=== PATIENT | female | born 1980 ===

== ENCOUNTER 2017-07-29 13:09 | Emergency (ER) | payer OTHER ==
[2017-07-29 13:32] VITALS: BP 108/65; RESP 18; TEMP 99.8
[2017-07-29 13:52] VITALS: PULSE 109; O2SAT 100
--- NOTE | 2017-07-29 13:55 | ED PDOC ---
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 Patient states everyone in household has same symptoms and were all tested for flu, but tested (-). Patient admits to taking Motrin 2 hours ago. Denies any chest pain, shortness of breath, recent travel or hemoptysis. 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 [place] Past Medical History Reviewed: Historical Data, Nursing Documentation, Vital Signs Vital Signs: Last Vital Signs Temp 99.8 F H 07/29/17 13:29 Pulse 109 H 07/29/17 13:51 Resp 18 07/29/17 13:29 BP 108/65 07/29/17 13:29 Pulse Ox 100 07/29/17 13:57 - Medical History PMH: No Chronic Diseases - Surgical History Surgical History: No Surg Hx - Family History Family History: States: Unknown Family Hx - Home Medications Home Medications: Ambulatory Orders Medication Instructions Recorded Nitrofurantoin Macrocrystals 100 mg PO BID #10 cap 05/03/14 [Macrobid] Acetaminophen [Tylenol] 2 tab PO Q4H PRN 12/20/14 Ibuprofen [Motrin] 600 mg PO Q8 #30 tab 12/20/14 Benzonatate [Tessalon Perle] 100 mg PO Q8 PRN #20 capsule 07/29/17 Fluticasone Propionate [Flonase] 2 spr NS DAILY PRN #1 bottle 07/29/17 - Allergies Allergies/Adverse Reactions: Allergies Allergy/AdvReac Type Severity Reaction Status Date / Time No Known Allergies Allergy Verified 12/20/14 16:05 Review of Systems ROS Statement: Except As Marked, All Systems Reviewed And Found Negative Constitutional: Positive for: Fever ENT: Positive for: Nose Congestion Cardiovascular: Negative for: Chest Pain Respiratory: Positive for: Cough. Negative for: Shortness of Breath, Hemoptysis Physical Exam - Reviewed Nursing Documentation Reviewed: Yes Vital Signs Reviewed: Yes - Physical Exam Appears: Positive for: Well Head Exam: Positive for: NORMAL INSPECTION Skin: Negative for: Rash Eye Exam: Positive for: Normal appearance ENT: Positive for: Normal ENT Inspection Cardiovascular/Chest: Positive for: Regular Rate, Rhythm Respiratory: Positive for: Normal Breath Sounds. Negative for: Respiratory Distress Neurologic/Psych: Positive for: Alert, Oriented. Negative for: Motor/Sensory Deficits - ECG O2 Sat by Pulse Oximetry: 100 (RA) Medical Decision Making Medical Decision Making: Upon provider evaluation patient is medically stable, and requires no further treatment in the ED at this time. Patient will be discharged with Rx for Tessalon Perle, Flonase. Counseling was provided and all questions were answered regarding diagnosis. Advised to continue Tylenol or Motrin as needed for fever. There is agreement to discharge plan. Return if symptoms persist or worsen. Scribe Attestation: Documented by Jimenez Norwood, acting as a scribe for VALARIE Gordon. Provider Scribe Attestation: All medical record entries made by the Scribe were at my direction and personally dictated by me. I have reviewed the chart and agree that the record accurately reflects my personal performance of the history, physical exam, medical decision making, and the department course for this patient. I have also personally directed, reviewed, and agree with the discharge instructions and disposition. Disposition - Clinical Impression Clinical Impression: Upper respiratory infection - Patient ED Disposition Is Patient to be Admitted: No - Disposition Referrals: [facility] [Outside] Disposition: Routine/Home Disposition Time: 13:49 Condition: STABLE Additional Instructions: Drink plenty of fluids. Continue taking Tylenol or Motrin as needed for fever. Follow up with [facility] for further evaluation. Prescriptions: Benzonatate [Tessalon Perle] 100 mg PO Q8 PRN #20 capsule PRN Reason: Cough Fluticasone Propionate [Flonase] 2 spr NS DAILY PRN #1 bottle PRN Reason: Allergy Symptoms Instructions: Upper Respiratory Infection (ED) Forms: [employer] Connect (British), [employer] Connect (Chinese) Print Language: IRISH
== END 2017-07-29 14:12 | disposition home or self-care (01) ==
LOC: H.ER 13:09
DX: J06.9 Acute upper respiratory infection, unspecified (principal)

== ENCOUNTER 2017-12-15 16:37 | Emergency (ER) | payer OTHER ==
[2017-12-15 16:45] VITALS: BP 111/53; PULSE 72; RESP 18; TEMP 98.1; O2SAT 99
--- NOTE | 2017-12-15 17:15 | ED PDOC ---
Lower Extremity Pain/Injury Time Seen by Provider: 12/15/17 16:46 Chief Complaint (Nursing): Lower Extremity Problem/Injury Chief Complaint (Provider): Dry cracked skin on heels History Per: Patient History/Exam Limitations: no limitations Onset/Duration Of Symptoms: Days (x3) Current Symptoms Are (Timing): Still Present Additional Complaint(s): 37 y/o female with no signficant pmhx, who presents ot the ED for evaluation of dry cracked skin to left heel x3 days. Patient is also complaining of pain to the base of the left big toe ongoing for 1 month. Past Medical History Reviewed: Historical Data, Nursing Documentation, Vital Signs Vital Signs: Last Vital Signs Temp 98.1 F 12/15/17 16:40 Pulse 72 12/15/17 16:40 Resp 18 12/15/17 16:40 BP 111/53 L 12/15/17 16:40 Pulse Ox 99 12/15/17 16:40 - Medical History PMH: No Chronic Diseases - Surgical History Surgical History: No Surg Hx - Family History Family History: States: Unknown Family Hx - Home Medications Home Medications: Ambulatory Orders Medication Instructions Recorded Nitrofurantoin Macrocrystals 100 mg PO BID #10 cap 05/03/14 [Macrobid] Acetaminophen [Tylenol] 2 tab PO Q4H PRN 12/20/14 Ibuprofen [Motrin] 600 mg PO Q8 #30 tab 12/20/14 Benzonatate [Tessalon Perle] 100 mg PO Q8 PRN #20 capsule 07/29/17 Fluticasone Propionate [Flonase] 2 spr NS DAILY PRN #1 bottle 07/29/17 - Allergies Allergies/Adverse Reactions: Allergies Allergy/AdvReac Type Severity Reaction Status Date / Time No Known Allergies Allergy Verified 12/15/17 16:40 Review of Systems ROS Statement: Except As Marked, All Systems Reviewed And Found Negative Skin: Positive for: Other (dry cracked skin on left heel) Physical Exam - Reviewed Nursing Documentation Reviewed: Yes Vital Signs Reviewed: Yes - Physical Exam Appears: Positive for: Non-toxic, No Acute Distress Head Exam: Positive for: ATRAUMATIC Skin: Positive for: Normal Color, Warm Eye Exam: Positive for: Normal appearance Neck: Positive for: Normal, Painless ROM Respiratory: Negative for: Respiratory Distress Extremity: Positive for: Other (bony protuberance to left 1st MTP) Neurologic/Psych: Positive for: Alert - ECG O2 Sat by Pulse Oximetry: 99 (RA) Pulse Ox Interpretation: Normal Medical Decision Making Medical Decision Making: Scribe Attestation: Documented by Quinton Devries, acting as a scribe for Mckenna Cline PA-C. MD Scribe Attestation: All medical record entries made by the Scribe were at my direction and personally dictated by me. I have reviewed the chart and agree that the record accurately reflects my personal performance of the history, physical exam, medical decision making, and the department course for this patient. I have also personally directed, reviewed, and agree with the discharge instructions and disposition. Disposition - Clinical Impression Clinical Impression: Cracked skin on feet, Bunion of great toe - Disposition Referrals: [facility] [Outside] Disposition: Routine/Home Disposition Time: 17:18 Condition: STABLE Instructions: Bunion Forms: [employer] (Setswana) Print Language: BRITISH [place]
== END 2017-12-15 17:29 | disposition home or self-care (01) ==
LOC: H.ER 16:37
DX: R23.4 Changes in skin texture (principal); M20.12 Hallux valgus (acquired), left foot

== ENCOUNTER 2018-11-13 23:54 | Emergency (ER) | payer SELFPAY ==
[2018-11-14 00:03] VITALS: BP 127/83; PULSE 67; RESP 16; TEMP 98.5; O2SAT 100
[2018-11-14 00:59] LABS: BASO # 0.1 K/uL (0.0-0.2); BASO % 0.7 % (0.0-2.0); EOS # 0.8 K/uL (0.0-0.7); EOS % 7.9 % (0.0-4.0); HEMOGLOBIN 13.4 g/dL (12.0-16.0); LYMPH # 3.4 K/uL (1.0-4.3); LYMPH % 33.3 % (20.0-40.0); MEAN CELL VOLUME 88.3 fl (81.0-99.0); MEAN CORPUSCULAR HEMOGLOBIN 29.2 pg (27.0-31.0); MEAN PLATELET VOLUME 9.2 fl (7.2-11.7); MONO # 0.8 K/uL (0.0-0.8); MONO % 7.4 % (0.0-10.0); NEUT # 5.2 K/uL (1.8-7.0); NEUT % 50.7 % (50.0-75.0); NRBC % 0.1 % (0.0-0.0); RBC 4.58 Mil/uL (3.80-5.20); RED CELL DISTRIBUTION WIDTH 13.7 % (11.5-14.5); WHITE BLOOD COUNT 10.3 K/uL (4.8-10.8)
[2018-11-14 01:08] LABS: ALB/GLOB RATIO 1.3 (1.0-2.1); ALBUMIN 4.4 g/dL (3.5-5.0); ALT/SGPT 46 U/L (9-52); AST/SGOT 39 U/L (14-36); BLOOD UREA NITROGEN 19 mg/dl (7-17); CALCIUM 9.2 mg/dL (8.4-10.2); GFR NON-AFRICAN AMERICAN > 60
--- NOTE | 2018-11-14 01:41 | ED PDOC ---
HPI: General Adult Time Seen by Provider: 11/14/18 00:07 Chief Complaint (Nursing): Breast Problem Chief Complaint (Provider): Breast problem History Per: Patient History/Exam Limitations: no limitations Onset/Duration Of Symptoms: Days (2x) Current Symptoms Are (Timing): Still Present Severity: Moderate Additional Complaint(s): 38 year old female with no pertinent past medical history presents to the ED for an evaluation of right breast pain ongoing for 3x days. Patient states that 2x days ago she felt a swollen lump to her right breast around the nipple. Patient states that the pain is moderate and radiates to her back. Patient denies having drainage, redness to the site, fevers, or taking pain medications prior to arrival. PMD: [facility] Past Medical History Reviewed: Historical Data, Nursing Documentation, Vital Signs Vital Signs: Last Vital Signs Temp 98.5 F 11/14/18 00:00 Pulse 67 11/14/18 00:00 Resp 16 11/14/18 00:00 BP 127/83 11/14/18 00:00 Pulse Ox 100 11/14/18 00:00 DONNA Report Viewed: Yes - Medical History PMH: No Chronic Diseases - Surgical History Surgical History: No Surg Hx - Family History Family History: States: No Known Family Hx - Social History Current smoker - smoking cessation education provided: No Alcohol: None Drugs: Denies - Home Medications Home Medications: Ambulatory Orders Medication Instructions Recorded Nitrofurantoin Macrocrystals 100 mg PO BID #10 cap 05/03/14 [Macrobid] Acetaminophen [Tylenol] 2 tab PO Q4H PRN 12/20/14 Ibuprofen [Motrin] 600 mg PO Q8 #30 tab 12/20/14 Benzonatate [Tessalon Perle] 100 mg PO Q8 PRN #20 capsule 07/29/17 Fluticasone Propionate [Flonase] 2 spr NS DAILY PRN #1 bottle 07/29/17 Naproxen [Naprosyn] 500 mg PO Q12 #14 tab 11/14/18 - Allergies Allergies/Adverse Reactions: Allergies Allergy/AdvReac Type Severity Reaction Status Date / Time No Known Allergies Allergy Verified 11/14/18 00:00 Review of Systems ROS Statement: Except As Marked, All Systems Reviewed And Found Negative Constitutional: Negative for: Fever Cardiovascular: Positive for: Other (swollen lump to the right breast around the nipple. 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 (-) erythema, (-) warmth, (-) induration, (-) drainage. - Laboratory Results Result Diagrams: 11/14/18 00:54 11/14/18 00:54 Lab Results: Total Bilirubin 0.6 mg/dl (0.2-1.3) 11/14/18 00:54 AST 39 U/L (14-36) H 11/14/18 00:54 ALT 46 U/L (9-52) 11/14/18 00:54 Alkaline Phosphatase 98 U/L (38-126) 11/14/18 00:54 Total Protein 7.7 G/DL (6.3-8.2) 11/14/18 00:54 Albumin 4.4 g/dL (3.5-5.0) 11/14/18 00:54 Globulin 3.3 gm/dL (2.2-3.9) 11/14/18 00:54 Albumin/Globulin Ratio 1.3 (1.0-2.1) 11/14/18 00:54 - ECG O2 Sat by Pulse Oximetry: 100 (RA) Pulse Ox Interpretation: Normal Medical Decision Making Medical Decision Makin:07 Initial impression: 38 year old female with nonspecific right breast pain; mastalgia. Initial plan: * US breast limited right * CMP * upreg * udip * CBC with differential * toradol 30 mg IV * reevaluation 2:06 US breast right read and reviewed by radiologist Findings: Real-time ultrasound images were obtained. Sonographic evaluation of the area of clinical abnormality/pain 8:00 demonstrates a septated benign chronic cyst measuring 1.2 cm. Impression: Sonographic evaluation at the area of the pain 7/8:00. Septated benign chronic cyst is noted. 2:35 Labs show no clinically significant abnormalities. Patient stable for discharge home. Patient to follow up with [facility]. There is agreement to discharge plan. Return if symptoms persist or worsen. -- ScribeAttestation: Documented byEmma Pathak, acting as a scribe for Geovany Yip MD. Provider ScribeAttestation: All medical record entries made by the Scribe were at my direction and pe rsonally dictated by me. I have reviewed the chart and agree that the record accurately reflects my personal performance of the history, physical exam, medical decision making, and the department course for this patient. I have also personally directed, reviewed, and agree with the discharge instructions and disposition. Disposition - Clinical Impression Clinical Impression: Cyst, breast - Disposition Disposition Time: 02:35 Condition: STABLE Prescriptions: Naproxen [Naprosyn] 500 mg PO Q12 #14 tab Instructions: Fibrocystic Breast Changes (DC) Forms: [employer] (Belarusian) Print Language: [place]
--- NOTE | 2018-11-14 11:51 | US ---
Date of service: 11/14/2018 PROCEDURE: Diagnostic right breast ultrasound examination HISTORY: right breast lesion COMPARISON: Not available TECHNIQUE: Targeted ultrasound examination of the right breast was performed for focal pain. FINDINGS: Examination demonstrates a septated cyst in the 7-8 o'clock axis corresponding to the area of focal pain. This measures 0.9 x 1.0 x 1.2 cm. Distance from the nipple was not specified by the technologist. No other solid or cystic mass is identified. IMPRESSION: No sonographic evidence of malignancy. No evidence of abscess. Please note that in this 38-year-old woman, the examination is considered incomplete without mammographic examination, with a history of focal pain. Further evaluation with bilateral diagnostic mammography is advised. BIRADS 0 Incomplete - Need additional imaging evaluation and/or prior mammograms for comparison Recommendation: Recall for additional imaging and/or comparison with prior examination, as described above. Patient will be contacted.
== END 2018-11-14 02:35 | disposition home or self-care (01) ==
LOC: H.ER 23:54
DX: N64.89 Other specified disorders of breast (principal)
CPT/HCPCS: 76642; 80053; 81025; 85025; J1885